=== PATIENT | female | born 1930 | race Caucasian/White ===

== ENCOUNTER 2016-03-17 03:14 | Inpatient (IN) | payer OTHER, MEDICARE ==
[~2016-03-17] VITALS: Ht 149.9 cm; Wt 42.8 kg
[2016-03-17 04:25] LABS: TROP-I INTERPRETATION NEGATIVE; TROPONIN-I 0.03 ng/mL (0.0-0.30)
[2016-03-17 04:28] LABS: EOSINOPHIL (%) 0.3 % (0-5); HEMATOCRIT 36.9 % (36.0-46.0); IMMATURE GRANULOCYTE (%) 0.1 % (0.0-0.7); LYMPHOCYTE COUNT 2.7 K/uL (1.0-2.8); MCH 26.8 PG (29.0-34.0); MCHC 32.8 G/DL (30.0-36.0); MCV 81.6 FL (83-99); MEAN PLAT.VOLUME 10.4 uM^3 (9.5-12.4); MONOCYTE (%) 11.1 % (3-12); MONOCYTE COUNT 1.1 K/uL (0-0.8); NEUTROPHIL (%) 60.8 % (45-76); PLATELET COUNT 218 K/uL (156-360); RBC DIS.WIDTH-CV 14.7 % (11.8-14.6); RED BLOOD COUNT 4.52 M/uL (3.80-5.20); WHITE BLOOD COUNT 9.8 K/uL (4.1-10.2)
[2016-03-17 04:30] LABS: ANION GAP 9 MEQ/L (2-14); CHLORIDE 111 MEQ/L (99-109); GFR ESTIMATE (CALCULATED) > 59 mL/min/; GLUCOSE 80 mg/dL (70-99); POTASSIUM 3.9 MEQ/L (3.7-5.4); SODIUM 141 MEQ/L (136-147); UREA NITROGEN (BUN) 27 mg/dL (9-23)
[2016-03-17] MEDS ORDERED: SYSTANE ULTRA 015 ML BOTH EYES (04:33)
[2016-03-17 04:54] LABS: PROTHROMBIN TIME 12.5 (9.2-11.2); PTT 30.6 (25-32)
[2016-03-17 05:11] LABS: INTER. NORMALIZED RATIO 1.2
[2016-03-17 07:00] VITALS: BP 133/63
[2016-03-17 07:33] VITALS: BP 133/63
[2016-03-17 10:59] VITALS: BP 131/62
[2016-03-17 11:35] LABS: TROP-I INTERPRETATION NEGATIVE; TROPONIN-I 0.01 ng/mL (0.0-0.30)
[2016-03-17] MEDS ORDERED: ULTRAM50 MG PO (12:14)
[2016-03-17] MEDS ORDERED: LEVO-T125 MCG PO (12:15)
[2016-03-17] MEDS ORDERED: ELIQUIS2.5 MG PO (12:15)
[2016-03-17] MEDS ORDERED: LIPITOR20 MG PO (12:15)
[2016-03-17] MEDS ORDERED: REQUIP0.25 MG PO (12:16)
[2016-03-17 15:12] VITALS: BP 142/75
[2016-03-17 19:55] VITALS: BP 111/80
[2016-03-17 23:34] VITALS: BP 139/62
[2016-03-18 06:13] LABS: HEMATOCRIT 34.1 % (36.0-46.0); MCH 27.1 PG (29.0-34.0); MCHC 32.6 G/DL (30.0-36.0); MCV 83.2 FL (83-99); MEAN PLAT.VOLUME 11.7 uM^3 (9.5-12.4); PLATELET COUNT 201 K/uL (156-360); RBC DIS.WIDTH-CV 14.9 % (11.8-14.6); RBC DIS.WIDTH-SD 45.2 % (39-53); WHITE BLOOD COUNT 10.4 K/uL (4.1-10.2)
[2016-03-18 06:27] VITALS: BP 110/80
[2016-03-18 06:34] LABS: ANION GAP 5 MEQ/L (2-14); CHLORIDE 109 MEQ/L (99-109); GFR ESTIMATE (CALCULATED) > 59 mL/min/; GLUCOSE 89 mg/dL (70-99); HDL CHOLESTEROL 44 MG/DL (Desirable>=50); LDL CHOLESTEROL 27 mg/dL (Desirable<100); NON-HDL CHOLESTEROL 34 mg/dL (Desirable<160); POTASSIUM 3.9 MEQ/L (3.7-5.4); SAMPLE HEMOLYSIS CHECK 0; SAMPLE ICTERIC CHECK 0; SAMPLE LIPEMIA CHECK 0; SODIUM 140 MEQ/L (136-147); TOTAL CHOLESTEROL 78 mg/dL (Desirable<200); TRIGLYCERIDES 34 MG/DL (Normal: <150); UREA NITROGEN (BUN) 22 mg/dL (9-23)
[2016-03-18 07:22] LABS: Estimated Average Glucose 108 mg/dL (70-123); HEMOGLOBIN A1c (GLYCOHEMOGLOB) 5.4 % HGB (Below 5.7)
[2016-03-18 08:00] VITALS: BP 150/69
[2016-03-18 12:12] VITALS: BP 117/58
[2016-03-18 16:00] VITALS: BP 94/55
[2016-03-18 19:41] VITALS: BP 122/56
[2016-03-19 00:16] VITALS: BP 121/52
[2016-03-19 08:24] VITALS: BP 126/77
[2016-03-19 11:56] VITALS: BP 125/64
[2016-03-19 16:22] VITALS: BP 127/68
[2016-03-19 19:37] VITALS: BP 124/57
[2016-03-20 00:06] VITALS: BP 121/54
[2016-03-20 04:52] VITALS: BP 129/64
[2016-03-20 07:54] VITALS: BP 144/73
[2016-03-20 11:44] VITALS: BP 128/62
[2016-03-20 15:34] VITALS: BP 143/72
[2016-03-20 19:38] VITALS: BP 126/67
[2016-03-21 04:05] VITALS: BP 121/64
[2016-03-21 08:17] VITALS: BP 149/79
[2016-03-21 08:26] LABS: HEMATOCRIT 38.4 % (36.0-46.0); MCV 83.3 FL (83-99); RED BLOOD COUNT 4.61 M/uL (3.80-5.20); WHITE BLOOD COUNT 7.7 K/uL (4.1-10.2)
[2016-03-21 08:27] LABS: MCH 28.2 PG (29.0-34.0); MCHC 33.9 G/DL (30.0-36.0); MEAN PLAT.VOLUME 11.1 uM^3 (9.5-12.4); PLATELET COUNT 253 K/uL (156-360); RBC DIS.WIDTH-CV 15.2 % (11.8-14.6)
[2016-03-21 09:17] LABS: ANION GAP 9 MEQ/L (2-14); CHLORIDE 107 MEQ/L (99-109); GFR ESTIMATE (CALCULATED) > 59 mL/min/; GLUCOSE 88 mg/dL (70-99); POTASSIUM 4.1 MEQ/L (3.7-5.4); SAMPLE HEMOLYSIS CHECK 0; SAMPLE ICTERIC CHECK 0; SAMPLE LIPEMIA CHECK 0; SODIUM 140 MEQ/L (136-147); UREA NITROGEN (BUN) 15 mg/dL (9-23)
[2016-03-21 11:53] VITALS: BP 134/72
[2016-03-21 16:01] VITALS: BP 141/74
[2016-03-21 20:26] VITALS: BP 133/63
[2016-03-22 00:38] VITALS: BP 131/66
[2016-03-22 04:35] VITALS: BP 132/78
[2016-03-22 07:30] VITALS: BP 121/66
[2016-03-22 11:00] VITALS: BP 154/80
[2016-03-22 16:00] VITALS: BP 138/70
[2016-03-22 19:39] VITALS: BP 109/66
[2016-03-23 00:30] VITALS: BP 141/73
[2016-03-23 03:34] VITALS: BP 121/74
[2016-03-23 07:59] VITALS: BP 126/75
[2016-03-23 16:22] VITALS: BP 121/62
[2016-03-23 19:17] VITALS: BP 116/56
[2016-03-24 00:20] VITALS: BP 110/54
[2016-03-24 04:00] VITALS: BP 133/64
[2016-03-24 07:51] VITALS: BP 129/68
[2016-03-24 11:48] VITALS: BP 132/61
[2016-03-24] MEDS ORDERED: DILTIAZEM 24HR180 MG PO (15:09)
[2016-03-24] MEDS ORDERED: POLYETHYLENE GL17 GM PO (15:09)
[2016-03-24] MEDS ORDERED: ULTRAM50 MG PO (15:09)
[2016-03-24 16:30] VITALS: BP 125/62
[2016-03-25] VITALS: BP 129/68
[2016-03-25 08:03] VITALS: BP 129/77
[2016-03-25 11:09] VITALS: BP 130/74
== END 2016-03-25 13:39 | DRG 948 ==
LOC: EME → EDBD 03:14 → 5SOUTH 05:16 → EDOF 05:16 → 5SOUTH 07:04
PROVIDERS: Emergency Medicine; Family Medicine; Physician Assistant
DX: R41.82 Altered mental status, unspecified (principal); I48.1 Persistent atrial fibrillation; F05 Delirium due to known physiological condition; Z68.1 Body mass index [BMI] 19.9 or less, adult; S80.02XA Contusion of left knee, initial encounter; W19.XXXA Unspecified fall, initial encounter; H54.8 Legal blindness, as defined in USA; R62.7 Adult failure to thrive; G25.81 Restless legs syndrome; Z60.2 Problems related to living alone; E03.9 Hypothyroidism, unspecified; I69.398 Other sequelae of cerebral infarction; N19 Unspecified kidney failure; M25.562 Pain in left knee; E78.5 Hyperlipidemia, unspecified; G93.89 Other specified disorders of brain; I10 Essential (primary) hypertension; R13.10 Dysphagia, unspecified; Z79.82 Long term (current) use of aspirin; Z79.01 Long term (current) use of anticoagulants; I69.391 Dysphagia following cerebral infarction; Y92.008 Other place in unspecified non-institutional (private) residence as the place of occurrence of the external cause; Z80.0 Family history of malignant neoplasm of digestive organs; Z82.49 Family history of ischemic heart disease and other diseases of the circulatory system
CPT/HCPCS: 70140; 70551; 71020; 73564; 80048; 80061; 83036; 84484; 85025; 85027; 85610; 85730; 92523 GN; 92526 GN; 92610 GN; 93005; 93306; 93880; 97530 GO; 97530 GP; 99281; 99285; J1644; J2270; J2405; J7030